=== PATIENT | female | born 1995 | race Two or more races ===

== ENCOUNTER 2024-09-23 00:10 | Emergency (ER) | payer OTHER ==
[~2024-09-23] VITALS: Ht 162.6 cm; Wt 167.4 kg
[2024-09-23] MEDS ORDERED: CEPHALEXIN750 MG (00:24)
[2024-09-23] MEDS ORDERED: ACETAMINOPHEN 500 MG GEL..CAP PO STA (02:33)
[2024-09-23] MEDS ORDERED: CEFTRIAXONE SODIUM 1,000 MG VIAL IM STA (02:34)
[2024-09-23] MEDS ORDERED: CEFTRIAXONE SODIUM 1,000 MG VIAL ONE (02:56)
[2024-09-23 04:45] LABS: URINE APPEARANCE Turbid; URINE BILIRRUBIN Negative (NEGATIVE); URINE BLOOD Large; URINE COLOR Orange; URINE KETONE Trace (NEGATIVE); URINE LEUKOCYTE Moderate; URINE NITRATE Negative; URINE PROTEIN 30 (NEGATIVE); URINE UROBILINOGEN 1.0 E.U./dl
[2024-09-23 04:46] LABS: URINE BACTERIA 434.3 uL (0.0-1933); URINE EPITHELIAL CELLS 11.5 uL (0.0-38.8); URINE RBC 7852.6 uL (0.0-20.8); URINE WBC 5408.6 uL (0.0-23.2)
[2024-09-23 04:50] LABS: URINE CAST 0.29 uL (0.0-1.40); URINE GLUCOSE >=1000 MG/DL (NEGATIVE)
[2024-09-23] MEDS ORDERED: CEPHALEXIN500 MG PO (05:19)
== END 2024-09-23 05:28 ==
LOC: ER 01:18
PROVIDERS: General Practice
DX: O20.8 Other hemorrhage in early pregnancy (principal); Z3A.01 Less than 8 weeks gestation of pregnancy; R31.9 Hematuria, unspecified; R10.2 Pelvic and perineal pain; R30.0 Dysuria

== ENCOUNTER 2024-09-25 08:09 | Day surgery (SDC) | payer OTHER ==
[~2024-09-25] VITALS: Ht 162.6 cm; Wt 167.4 kg
[~2024-09-25 08:09] MED LIST: CEPHALEXIN500 MG PO; CEPHALEXIN750 MG
[2024-09-25] MEDS ORDERED: PRENATAL + DHA1 EAC1 PO (08:12)
[2024-09-25 09:39] LABS: BASO % 0.4 % (0.1-1.2); EOS # 0.23 (0.04-0.54); EOS % 2.2 % (0.7-7.0); LYMPH # 1.54 (1.18-3.74); LYMPH % 14.7 % (19.3-53.1); MEAN PLATELET VOLUME 9.50 fl (9.4-12.4); MONO # 0.47 (0.24-0.82); MONO % 4.5 % (4.7-12.5); NEUT # 8.15 (1.56-6.13); NEUT % 77.9 % (34.0-71.1); RED CELL DISTRIBUTION WIDTH 15.6 % (11.6-14.4)
[2024-09-25 10:21] LABS: BUN CREA RATIO 8.0 (7.0-25.0); CREATININE SERUM 0.72 mg/dL (0.55-1.02); GFR 95.11
[2024-09-25 10:23] LABS: GLUCOSE FASTING 232.0 mg/dL (65-100); HCG QUANTITATIVE 1354.0 mUI/mL (1-3); OSMOLALITY SERUM 281.0 MOSM/KG (275-295)
[2024-09-25] MEDS ORDERED: ACETAMINOPHEN WITH CODEINE 1 UDTAB TABLET PO ONE (13:00)
[2024-09-25 14:59] LABS: BASO % 0.3 % (0.1-1.2); EOS # 0.19 (0.04-0.54); EOS % 1.6 % (0.7-7.0); LYMPH # 1.82 (1.18-3.74); LYMPH % 15.6 % (19.3-53.1); MEAN PLATELET VOLUME 9.40 fl (9.4-12.4); MONO # 0.74 (0.24-0.82); MONO % 6.3 % (4.7-12.5); NEUT # 8.83 (1.56-6.13); NEUT % 75.8 % (34.0-71.1); RED CELL DISTRIBUTION WIDTH 15.7 % (11.6-14.4)
[2024-09-25 15:08] LABS: INR 1.0
[2024-09-25] MEDS ORDERED: CHLORHEXIDINE GLUCONATE 120 ML BOTTLE TOP ONE (15:33)
[2024-09-25] MEDS ORDERED: POVIDONE-IODINE 118 ML BOTT TOP ONE (15:33)
[2024-09-25] MEDS ORDERED: ONDANSETRON HCL 2 MG/ML VIAL ONE (17:58)
[2024-09-25] MEDS ORDERED: ONDANSETRON HCL 2 MG/ML VIAL IV ONE (18:00)
[2024-09-25] MEDS ORDERED: MORPHINE SULFATE 4 MG/ML CARTRIDGE IV SCH (21:00)
[2024-09-25 23:17] VITALS: BP 119/70; O2SAT 100
== END 2024-09-25 23:55 | disposition home or self-care (01) ==
LOC: ER 08:09 → CIR.AMB 08:09 → ER 14:35 → O/R 14:35 → CIR.AMB 23:55
PROVIDERS: ATTEND Emergency Medicine
DX: O03.4 Incomplete spontaneous abortion without complication (principal)